=== PATIENT | male | born 1980 ===

== ENCOUNTER 2025-07-19 09:28 | Emergency (ER) | payer SELFPAY ==
[~2025-07-19] VITALS: Ht 165.1 cm; Wt 69.0 kg
[2025-07-19 09:54] VITALS: O2SAT 100
[2025-07-19 10:45] LABS: HEMATOCRIT. 39.4 % (42.0-52.0); HEMOGLOBIN. 13.5 g/dL (14.0-18.0); MEAN PLATELET VOLUME 7.6 fl (7.4-10.4); PLATELET 278 x1000/uL (130-400); RED BLOOD CELL COUNT 4.43 mill/uL (4.7-6.1); RED CELL DISTRIBUTION WIDTH 13.2 % (11.6-14.6)
[2025-07-19 11:00] LABS: CREATININE 0.8 mg/dL (0.6-1.3); UREA NITROGEN BLOOD 6 mg/dL (9-23)
[2025-07-19 11:02] LABS: ASPARTATE AMINOTRANSFERASE 19 IU/L (<34); BILIRUBIN DIRECT 0.1 mg/dL (<=3.0); BILIRUBIN TOTAL 0.4 mg/dL (0.1-1.0); PROTEIN TOTAL 7.0 g/dL (6.0-8.3)
[2025-07-19] MEDS ORDERED: DICYCLOMINE HCL 20MG TABLET PO SCH (11:45)
[2025-07-19] MEDS: ONDANSETRON 4MG ODT PO ONE (11:56)
[2025-07-19] MEDS: DICYCLOMINE HCL 10MG CAPSULE PO SCH (11:56)
[2025-07-19] MEDS ORDERED: DICY20TA2 MT (14:53)
[2025-07-19] MEDS ORDERED: ONDA-239 PO (14:53)
[2025-07-19 15:02] VITALS: BP 120/81; PULSE 65; RESP 15; TEMP 36.9; O2SAT 100
[2025-07-19 17:16] LABS: EOSINOPHILS % MANUAL 1.0 % (0.0-5.0); LYMPHOCYTES % MANUAL 34.0 % (20.0-50.0); MONOCYTES % MANUAL 16.0 % (2.0-8.0); NEUTROPHILS % MANUAL 49.0 % (45.0-75.0); PLATELET ESTIMATE NORMAL
== END 2025-07-19 15:03 | disposition home or self-care (01) ==
LOC: ER 09:28
DX: A08.4 Viral intestinal infection, unspecified (principal); E78.00 Pure hypercholesterolemia, unspecified; R11.2 Nausea with vomiting, unspecified; R10.84 Generalized abdominal pain
CPT/HCPCS: 99283; 80053; 85025; 36415; 80076; Q0162